=== PATIENT | male | born 1965 | race Caucasian/White ===

== ENCOUNTER → 2016-07-28 | Outpatient (CLI) | payer OTHER | END | disposition home or self-care (01) | LOC: NUC 09:52 | DX: R10.9 Unspecified abdominal pain (principal); R11.0 Nausea | CPT/HCPCS: 78227; A9537 ==

== ENCOUNTER 2017-01-31 11:13 | Day surgery (SDC) | payer OTHER ==
[~2017-01-31] VITALS: Ht 170.2 cm; Wt 88.0 kg
[~2017-01-31 11:13] MED LIST: ASPIRIN81 M2 PO; LIPITOR80 MG PO; LOMOTIL TABLET1 EACH PO; LOSARTAN POTAS100 MG PO; METOPROLOL TART25 MG PO; NIFEDIPINE ER60 MG PO; NITROSTAT0.4 MG SL; PANTOPRAZOLE SO40 MG PO; XANAX1 MG PO
== END 2017-01-31 19:10 | disposition home or self-care (01) ==
LOC: CATH 11:13
DX: I25.82 Chronic total occlusion of coronary artery (principal); I25.10 Atherosclerotic heart disease of native coronary artery without angina pectoris; Z95.5 Presence of coronary angioplasty implant and graft; E78.5 Hyperlipidemia, unspecified; I10 Essential (primary) hypertension; R00.1 Bradycardia, unspecified; F17.210 Nicotine dependence, cigarettes, uncomplicated; Z79.82 Long term (current) use of aspirin
CPT/HCPCS: 85347; C1769; C1887; J0153; J1644; J2250; J3010